=== PATIENT | male | born 1960 | race Caucasian/White ===

== ENCOUNTER → 2021-09-23 | Outpatient (CLI) | payer OTHER ==
--- NOTE | 2021-09-23 13:11 | RAD ---
Exam Date: 09/23/2021 10:[address] ABDOMEN+PELVIS WO Indication: Reason: Urinary track infection LT Back Pain, Pain urinating / Spl. Instructions: / Hist ory: . TECHNIQUE: CT examination of the abdomen and pelvis was performed without oral or intravenous contra st. One or more of the following dose reduction techniques were utilized: *Automated exposure control (AEC) *Adjustment of mA and/or kV according to patient size *Use of iterative reconstruction technique *CT scan done according to ALARA, or ALARA/IMAGE GENTLY FINDINGS: The visualized lung bases are clear. There are calcified granulomas in the liver and spleen. The liver, gallbladder, spleen, pancreas, and adrenal glands are otherwise normal. The kidneys are normal bilaterally. No hydronephrosis or hydroureter is seen. No urinary tract calc jose are seen. Urinary bladder demonstrates circumferential mural thickening, possibly related to und erdistention. Prostate gland calcifications are noted. There is no bowel obstruction or inflammation. The appendix is normal. Mild atherosclerotic calcifications are seen. 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 No lymphadenopathy or ascite s is seen. Degenerative changes are seen in the spine. IMPRESSION: Normal appearance of the kidneys. No hydronephrosis or hydroureter. No urinary tract calculi. Circumferential mural thickening of the bladder could be related to underdistention, though other malia dder pathology is not excluded, such as infection or neoplasm. Correlate clinically and consider fur ther workup as clinically indicated. 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 Electronically signed by: Jesse Cabrera MD (09/23/2021 1:09 PM) [id number]
== END ==
LOC: CT 11:00
PROVIDERS: ATTEND Urology
DX: N39.0 Urinary tract infection, site not specified (principal); N42.89 Other specified disorders of prostate; K75.3 Granulomatous hepatitis, not elsewhere classified; I72.8 Aneurysm of other specified arteries
CPT/HCPCS: 74176